=== PATIENT | female | born 1995 | race Caucasian/White ===

== ENCOUNTER 2022-06-30 02:03 | Emergency (ER) | payer BC ==
[~2022-06-30] VITALS: Ht 170.2 cm; Wt 72.6 kg
--- NOTE | 2022-06-30 02:30 | NUR ---
Dr. Castro at bedside for MSE.
[2022-06-30 03:01] LABS: HEMATOCRIT 42.1 % (31.2-41.9); MEAN CORPUSCULAR VOLUME 89.4 fL (75.5-95.3); PLATELET COUNT (AUTO) 241 K/uL (179-408)
[2022-06-30 03:02] LABS: *URINE HCG, QUAL NEGATIVE (NEGATIVE)
[2022-06-30 03:15] LABS: ALANINE AMINOTRANSFERASE 19 U/L (14-59); ALKALINE PHOSPHATASE 57 U/L (50-136); ASPARTATE AMINOTRANSFERASE 21 U/L (15-37); BILIRUBIN,DIRECT 0.1 mg/dL (0.0-0.2); BILIRUBIN,TOTAL 0.2 mg/dL (0.2-1.0); CARBON DIOXIDE 28 mmol/L (21-32); CHLORIDE 102 mmol/L (98-107); CREATININE 0.9 mg/dL (0.6-1.3); GLUCOSE 98 mg/dL (74-106); POTASSIUM 3.7 mmol/L (3.5-5.1); TOTAL PROTEIN, SERUM 7.8 g/dL (6.4-8.2); UREA NITROGEN, BLOOD 11 mg/dL (7-18)
[2022-06-30] MEDS ORDERED: NAPROXEN 500 MG TABLET ONE (04:40)
[2022-06-30] MEDS ORDERED: NAPROXEN 500 MG TABLET PO ONE (04:45)
[2022-06-30 06:52] VITALS: BP 118/67
--- NOTE | 2022-06-30 06:52 | NUR ---
Patient discharged to home in stable condition. Written and verbal after care instructions given. Patient verbalizes understanding of instructions. Stressed follow up or return to ER for worsening s/s. Patient out of ER with steady gait, no acute signs of distress, VSS, all belongings taken.
== END 2022-06-30 06:53 | disposition home or self-care (01) ==
LOC: ER 02:24
DX: R07.9 Chest pain, unspecified (principal); Z72.0 Tobacco use; F12.90 Cannabis use, unspecified, uncomplicated
CPT/HCPCS: 36415; 71045; 84484; 84703; 85025; 93005; A4663